=== PATIENT | female | born 1975 | race Caucasian/White ===

== ENCOUNTER → 2024-02-06 12:02 | Outpatient (REF) | payer OTHER, SELFPAY | LOC: HWWDC 12:02 | PROVIDERS: ATTENDING PHYSICIAN Obstetrics & Gynecology; FAMILY PHYSICIAN Nurse Practitioner | DX: Z12.31 Encounter for screening mammogram for malignant neoplasm of breast (principal) | CPT/HCPCS: 77063; 77067 ==

== ENCOUNTER → 2025-05-27 14:46 | Outpatient (REF) | payer OTHER, SELFPAY | LOC: HWWDC 14:46 | PROVIDERS: ATTENDING PHYSICIAN Obstetrics & Gynecology; FAMILY PHYSICIAN Internal Medicine | DX: Z12.31 Encounter for screening mammogram for malignant neoplasm of breast (principal) | CPT/HCPCS: 77063; 77067 ==

== ENCOUNTER 2025-06-24 06:17 | Day surgery (SDC) | payer OTHER, SELFPAY | END 2025-06-24 08:33 | disposition home or self-care (01) | LOC: GI 06:17 | PROVIDERS: ATTENDING PHYSICIAN Internal Medicine Gastroenterology | DX: Z12.11 Encounter for screening for malignant neoplasm of colon (principal); D12.0 Benign neoplasm of cecum; D12.2 Benign neoplasm of ascending colon; D12.3 Benign neoplasm of transverse colon; Z83.719 Family history of colon polyps, unspecified | CPT/HCPCS: 45385; 88305 ==